=== PATIENT | female | born 2005 | race Caucasian/White ===

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

== ENCOUNTER 2025-06-06 09:54 | Emergency (ER) | payer OTHER, SELFPAY ==
--- NOTE | 2025-06-06 09:57 | ED_ITS ---
HPI - General Adult General Chief complaint: Upper Respiratory Symptoms Stated complaint: Fever, mouth and throat swollen Time Seen by Provider: 06/06/25 09:57 Source: patient, RN notes reviewed and old records reviewed Mode of arrival: Ambulatory Limitations: no limitations History of Present Illness HPI narrative: 20-year-old female presents with complaint of fevers, sore throat and enlargement of her lymph nodes for the past 4 days. States she has had fevers up to 100.6 and 101 F. she notes swelling of her throat she feels like there some swelling of her cheeks and in the neck as well. She states very mild nasal congestion, she has noted a cold sore on the inside of her mouth and on her tongue. She states she has not had any changes to her voice. She has had decreased appetite but able to eat and drink. Patient states no cough symptoms. No chest pain or shortness of breath. She has had some mild nausea but no vomiting. Notes a little bit of constipation, no urinary symptoms. No rash or skin changes. Patient states she did see a dentist thought might be a dental problem was started on Clindamycin, she had doses starting yesterday. She states she has been taking ibuprofen and acetaminophen for pain PRN last dose was at 7:00 a.m.. She is not on any other daily medications. She has had prior knee surgery. No tobacco, occasional alcohol, occasional marijuana no rash of the recreational drugs. Related Data Previous Rx's ?Medication ?Instructions ?Recorded prednisone 10 mg tablets in a dose See Rx Instructions PO .COMPLEX 06/06/25 pack #21 ea tramadol 50 mg tablet 50 mg PO Q6H PRN pain #10 ta bs 06/06/25 Allergies Allergy/AdvReac Type Severity Reaction Status Date / Time amoxicillin Allergy Verified 03/05/21 11:29 Review of Systems Review of Systems ROS Unobtainable: All systems reviewed & are unremarkable except as noted in HPI and below Patient History Medical History (Updated 06/06/25 @ 11:22 by Kimmie Kiser DO) ADD (attention deficit disorder) Exam Narrative Exam Narrative: GEN: well nourished, well appearing female, alert and oriented x [default value], patient appears to be in mild distress. HEENT: Atraumatic, pupils are equal round reactive to light, extraocular movements are intact, nares are clear, TMs are clear with no fluid, there is no conjunctival pallor. Throat is slightly erythematous tonsils are very mildly enlarged, uvula is midline, no hoarseness or muffled voice, patient does has a little bit of cervical adenopathy. She is nontender over the cheeks. No fluid collections or abscess appreciated. No warmth or erythema. No stridor. No difficulty with secretions. HEART: Regular rate and rhythm without murmur, clicks, rubs. LUNGS:Lungs clear to auscultation, no wheezes, rales, crackles, chest moves symmetrically, no tachypnea or accessory muscle use ABD:bowel sounds normal, soft, non-tender, no guarding, rebound, rigidity, no masses noted, no hepatosplenomegaly :No CVA tenderness MSCL: Full range of motion, normal gait NEURO:CN 2-12 intact, sensation normal SKIN: No rash or erythema noted. Initial Vital Signs Initial Vital Signs: Vital Signs Temperature 99.3 F 06/06/25 10:02 Pulse Rate 108 H 06/06/25 10:02 Respiratory Rate 16 06/06/25 10:02 Blood Pressure 120/66 06/06/25 10:02 Pulse Oximetry 97 06/06/25 10:02 Oxygen Delivery Method Room Air 06/06/25 10:02 Course Orders Ordered: ED Orders 06/06/25 10:12 Strep Grp A by PCR Rapid Stat Discontinued Medications Prednisone (Prednisone 20 Mg Tablet) 60 mg PO NOW ONE Stop: 06/06/25 10:10 Last Admin: 06/06/25 10:16 Dose: 60 mg Documented By: RB Tramadol HCl (Tramadol 50 Mg Tablet) 50 mg PO NOW ONE Stop: 06/06/25 11:25 Last Admin: 06/06/25 11:32 Dose: 50 mg Documented By: RLC Vital Signs Vital signs: Vital Signs - 8 hr 06/06/25 11:36 Temperature 98.8 F Pulse Rate 97 H Respiratory Rate 16 Blood Pressure 115/87 Pulse Oximetry 99 Oxygen Delivery Method Room Air Medical Decision Making Lab Data Labs: Lab Results 06/06/25 Range/Units 10:12 Group A Strep (PCR) Negative (Negative) MDM Narrative Medical decision making narrative: Rapid strep is negative. Patient has a hard time with rapid strep and throat culture, may have been inadequate sample. Patient notes she has strong gag reflex at baseline. Discussed with the patient with her mouth sores [id number] would also be with the nurse. Discussed with the patient she can continue her oral antibiotics sounds like her symptoms all started before she started the clindamycin. We also discussed possible viral source. We will give her a course of oral steroid and short course of pain medication. She does not feel like her symptoms are rapidly worsening she does state she is uncomfortable. Discussed return precautions all questions answered. Discharge Plan Departure Patient Disposition: Home Clinical Impression: Pharyngitis Instructions: DI for Pharyngitis/Tonsillopharyngitis -- Adult Activity Restrictions/Additional Instructions: Follow up for rechecked if you are having any worsening symptoms. You can continue with the acetaminophen up to a 1000 mg every 6 hours and/or ibuprofen up to 600 mg every 6 hours as needed for pain. If inadequate you can take tramadol 1-2 tablets every 6 hours as needed. This medication can make you sleepy do not drive, perform hazardous activities or make any major decisions while taking it. This medication will make you constipated please take a stool softener once to twice daily until stools are soft and regular. You have also received a prescription for prednisone. You can continue your oral antibiotic as prescribed. Please return if you have persistent fevers, any increasing swelling of your lips, tongue or airway, changes to your voice, vomiting, difficulty with swa llowing your saliva or secretions or other new or concerning changes. Prescriptions: New prednisone 10 mg tablets,dose pack See Rx Instructions .ROUTE .COMPLEX Qty: 21 0RF Rx Instructions: 6 tabs p.o. x1 day, then 5 tabs p.o. x1 day, then 4 tablets p.o. x1 day, then 3 tabs p.o. x1 day, then 2 tabs p.o. x1 day, then 1 tab p.o. x1 day tramadol 50 mg tablet 50 mg PO Q6H PRN (Reason: pain) Qty: 10 0RF Referrals: Krystle Nevarez DO [Non-Staff, Family Practice] Stand Alone Forms: Patient Portal/API
[2025-06-06 10:02] VITALS: BP 120/66; PULSE 108; RESP 16; TEMP 37.4; O2SAT 97; BMI 46.0
[2025-06-06 10:30] LABS: Strep Grp A by PCR Rapid Negative (Negative)
[2025-06-06 11:36] VITALS: BP 115/87; PULSE 97; RESP 16; TEMP 37.1; O2SAT 99
== END 2025-06-06 11:36 | disposition home or self-care (01) ==
PROVIDERS: Emergency Provider Emergency Medicine
DX: J02.9 Acute pharyngitis, unspecified (principal); R59.9 Enlarged lymph nodes, unspecified
CPT/HCPCS: 87651; 99283